=== PATIENT | female | born 1965 | race African-American/Black ===

== ENCOUNTER 2019-02-12 12:59 | Emergency (ER) | payer OTHER | END 2019-02-12 14:02 | disposition home or self-care (01) | LOC: ERS 12:59 | DX: R56.9 Unspecified convulsions (principal); F41.9 Anxiety disorder, unspecified; F17.210 Nicotine dependence, cigarettes, uncomplicated; Z79.899 Other long term (current) drug therapy | CPT/HCPCS: 99284 ==